=== PATIENT | male | born 1930 | race Caucasian/White ===

== ENCOUNTER → 2017-09-08 16:24 | Outpatient (CLI) | payer MEDICARE ==
[~2017-09-08 16:24] MED LIST: COLACE100 MG PO; FLOMAX0.4 MG PO; LIPITOR10 MG PO; NORVASC5 MG PO; ZESTRIL40 MG PO
[2017-10-17 13:26] VITALS: BMI 21.8
== END | disposition home or self-care (01) ==
LOC: D.RAD 16:24
DX: R19.06 Epigastric swelling, mass or lump (principal)

== ENCOUNTER 2017-10-12 12:35 | Inpatient (IN) | payer MEDICARE ==
[~2017-10-12] VITALS: Ht 180.3 cm; Wt 71.2 kg
[2017-10-12 13:35] LABS: BASOPHILS 0.1 % (0-2); EOSINOPHILS 1.2 % (0-7); HEMATOCRIT 31.2 % (42.0-54.0); HEMOGLOBIN 10.6 g/dL (13.5-17.5); IMMATURE GRANULOCYTES 0.4 % (0-5); MCH 32.4 pg (26.0-34.0); MCV 95.4 fL (80.0-100.0); MEAN PLATELET VOLUME 8.8 fL (7.4-10.4); MONOCYTES 5.5 % (2-11); NEUTROPHILS 86.8 % (40-80); RBC 3.27 10x6/uL (4.20-6.10); RDW 15.9 % (11.5-14.5); WBC 11.3 10x3/uL (4.8-10.8)
[2017-10-12 13:36] LABS: PLATELET COUNT 223 10x3/uL (130-400)
[2017-10-12 14:04] LABS: ALBUMIN 2.3 g/dL (3.4-5.0); ALKALINE PHOSPHATASE 128 U/L (46-116); ALT (SGPT) 77 U/L (10-68); BILIRUBIN - TOTAL 0.37 mg/dL (0.2-1.3); CALC OSMOLALITY 270 mosm/kg (275-300); CALCIUM 8.6 mg/dL (8.5-10.1); CHLORIDE - SERUM 102 mmol/L (98-107); CREATININE - SERUM 0.9 mg/dL (0.6-1.3); GLUCOSE 80 mg/dL (74-106); POTASSIUM - SERUM 4.5 mmol/L (3.5-5.1); PROTEIN - SERUM 5.7 g/dL (6.4-8.2); SODIUM 132 mmol/L (136-145); UREA NITROGEN 32 mg/dL (7-18); eGFR NON AFRICAN AMERICAN 85 mL/min (90-120)
[2017-10-12 14:44] LABS: INR 1.32 (0.85-1.17); PROTIME 15.9 SECONDS (11.6-15.0)
[2017-10-12 14:46] LABS: D-DIMER-QUANTITATIVE 2.24 ug/mLFEU (0.20-0.54)
[2017-10-12 15:00] LABS: CKMB 22.4 U/L (0.0-3.6); CREATINE KINASE 129 UL (21-232); PRO BNP 435 pg/mL (0-450)
[2017-10-12 15:04] LABS: TROPONIN-I < 0.017 ng/mL (0.000-0.060)
[2017-10-13] MEDS ORDERED: NORVASC5 MG PO (00:25)
[2017-10-13] MEDS ORDERED: FLOMAX0.4 MG PO (00:25)
[2017-10-13] MEDS ORDERED: ZESTRIL40 MG PO (00:25)
[2017-10-13] MEDS ORDERED: LIPITOR10 MG PO (00:26)
[2017-10-13] MEDS ORDERED: COLACE100 MG PO (00:26)
[2017-10-13 02:14] VITALS: BP 90/46; BMI 21.9
[2017-10-13 04:00] VITALS: BP 115/52
[2017-10-13 04:39] LABS: BASOPHILS 0.1 % (0-2); EOSINOPHILS 1.4 % (0-7); HEMATOCRIT 31.9 % (42.0-54.0); HEMOGLOBIN 10.6 g/dL (13.5-17.5); IMMATURE GRANULOCYTES 0.3 % (0-5); LYMPHOCYTES 7.3 % (15-50); MCH 31.6 pg (26.0-34.0); MCHC 33.2 g/dL (31.0-37.0); MCV 95.2 fL (80.0-100.0); MONOCYTES 4.7 % (2-11); NEUTROPHILS 86.2 % (40-80); PLATELET COUNT 234 10x3/uL (130-400); RBC 3.35 10x6/uL (4.20-6.10)
[2017-10-13 04:56] LABS: CALC OSMOLALITY 277 mosm/kg (275-300); CALCIUM 8.5 mg/dL (8.5-10.1); CHLORIDE - SERUM 106 mmol/L (98-107); POTASSIUM - SERUM 4.7 mmol/L (3.5-5.1); SODIUM 137 mmol/L (136-145); UREA NITROGEN 28 mg/dL (7-18); eGFR NON AFRICAN AMERICAN 75 mL/min (90-120)
[2017-10-13 05:09] LABS: GLUCOSE 61 mg/dL (74-106)
[2017-10-13 08:07] VITALS: BP 113/52
[2017-10-13 11:46] VITALS: BP 110/49
[2017-10-13 14:27] VITALS: Ht 180.3 cm; Wt 71.2 kg
[2017-10-13 16:04] VITALS: BP 117/52
[2017-10-13 22:00] VITALS: BP 110/56
[2017-10-14 04:00] VITALS: BP 102/66
[2017-10-14 05:26] LABS: BASOPHILS 0.1 % (0-2); EOSINOPHILS 2.8 % (0-7); HEMATOCRIT 33.3 % (42.0-54.0); HEMOGLOBIN 11.1 g/dL (13.5-17.5); IMMATURE GRANULOCYTES 0.6 % (0-5); LYMPHOCYTES 10.8 % (15-50); MCHC 33.3 g/dL (31.0-37.0); MEAN PLATELET VOLUME 9.3 fL (7.4-10.4); MONOCYTES 7.2 % (2-11); NEUTROPHILS 78.5 % (40-80); PLATELET COUNT 230 10x3/uL (130-400); RBC 3.47 10x6/uL (4.20-6.10); RDW 16.2 % (11.5-14.5); WBC 7.2 10x3/uL (4.8-10.8)
[2017-10-14 05:59] LABS: CALC OSMOLALITY 282 mosm/kg (275-300); CALCIUM 8.8 mg/dL (8.5-10.1); CARBON DIOXIDE 23.4 mmol/L (21.0-32.0); CHLORIDE - SERUM 109 mmol/L (98-107); CREATININE - SERUM 0.9 mg/dL (0.6-1.3); GLUCOSE 76 mg/dL (74-106); POTASSIUM - SERUM 4.5 mmol/L (3.5-5.1); SODIUM 140 mmol/L (136-145); UREA NITROGEN 26 mg/dL (7-18); eGFR NON AFRICAN AMERICAN 85 mL/min (90-120)
[2017-10-14 10:57] VITALS: BP 134/70
[2017-10-14 12:45] VITALS: BP 138/76
[2017-10-14 16:45] VITALS: BP 101/68
[2017-10-14 20:00] VITALS: BP 137/74
[2017-10-15] VITALS: BP 140/77
[2017-10-15 05:00] VITALS: BP 137/67
[2017-10-15 07:45] LABS: HEMATOCRIT 32.7 % (42.0-54.0); HEMOGLOBIN 10.6 g/dL (13.5-17.5); MCH 30.9 pg (26.0-34.0); MCHC 32.4 g/dL (31.0-37.0); MCV 95.3 fL (80.0-100.0); MEAN PLATELET VOLUME 8.6 fL (7.4-10.4); PLATELET COUNT 208 10x3/uL (130-400); RBC 3.43 10x6/uL (4.20-6.10); RDW 16.8 % (11.5-14.5)
[2017-10-15 07:54] LABS: WBC 5.2 10x3/uL (4.8-10.8)
[2017-10-15 07:55] LABS: CALC OSMOLALITY 288 mosm/kg (275-300); CALCIUM 8.8 mg/dL (8.5-10.1); CARBON DIOXIDE 24.9 mmol/L (21.0-32.0); CHLORIDE - SERUM 112 mmol/L (98-107); CREATININE - SERUM 0.9 mg/dL (0.6-1.3); GLUCOSE 81 mg/dL (74-106); POTASSIUM - SERUM 4.7 mmol/L (3.5-5.1); SODIUM 144 mmol/L (136-145); UREA NITROGEN 22 mg/dL (7-18); eGFR NON AFRICAN AMERICAN 85 mL/min (90-120)
[2017-10-15 09:03] VITALS: BP 106/73
[2017-10-15 13:53] VITALS: BP 102/70
[2017-10-15 16:20] VITALS: BP 139/77
[2017-10-15 22:28] VITALS: BP 146/76
[2017-10-16 02:16] VITALS: BP 120/66
[2017-10-16 04:00] VITALS: BP 112/53
[2017-10-16 06:02] LABS: BASOPHILS 0.3 % (0-2); HEMOGLOBIN 10.1 g/dL (13.5-17.5); IMMATURE GRANULOCYTES 1.5 % (0-5); LYMPHOCYTES 21.2 % (15-50); MCH 31.4 pg (26.0-34.0); MCHC 32.6 g/dL (31.0-37.0); MCV 96.3 fL (80.0-100.0); MEAN PLATELET VOLUME 9.3 fL (7.4-10.4); PLATELET COUNT 183 10x3/uL (130-400); RBC 3.22 10x6/uL (4.20-6.10); RDW 16.1 % (11.5-14.5)
[2017-10-16 06:06] LABS: WBC 3.4 10x3/uL (4.8-10.8)
[2017-10-16 06:17] LABS: CALC OSMOLALITY 289 mosm/kg (275-300); CALCIUM 8.7 mg/dL (8.5-10.1); CHLORIDE - SERUM 113 mmol/L (98-107); CREATININE - SERUM 0.9 mg/dL (0.6-1.3); POTASSIUM - SERUM 4.5 mmol/L (3.5-5.1); SODIUM 145 mmol/L (136-145); UREA NITROGEN 21 mg/dL (7-18); eGFR NON AFRICAN AMERICAN 85 mL/min (90-120)
[2017-10-16 06:27] LABS: GLUCOSE 59 mg/dL (74-106)
[2017-10-16 08:17] VITALS: BP 128/59
[2017-10-16 11:47] VITALS: BP 124/73
[2017-10-16 21:43] VITALS: BP 164/81
[2017-10-17 18:07] LABS: ACID FAST SMEAR Negative (()); AFB SPECIMEN PROCESSING Concentration (())
[2017-10-19 11:12] LABS: FUNGUS STAIN Final report (())
[2017-10-22 15:17] LABS: FUNGUS CULTURE RESULT 1 Candida albicans (()); FUNGUS STAIN RESULT 1 Hyphae observed (())
[2017-10-26 07:10] LABS: VIRAL - RESULT No virus isolated. (())
[2017-11-13 17:12] LABS: FUNGUS MYCOLOGY CULTURE Final report (())
== END 2017-10-16 22:20 | disposition hospice, inpatient (51) | DRG 178 ==
LOC: D.ER 12:35 → D.MS 21:29
PROVIDERS: Family Medicine; Internal Medicine Pulmonary Disease
PROC: 0B9B8ZZ Drainage of Left Lower Lobe Bronchus, Via Natural or Artificial Opening Endoscopic (ICD-10-PCS; 2017-10-16)
PROC: 0B988ZZ Drainage of Left Upper Lobe Bronchus, Via Natural or Artificial Opening Endoscopic (ICD-10-PCS; 2017-10-16)
PROC: 5A09357 Assistance with Respiratory Ventilation, Less than 24 Consecutive Hours, Continuous Positive Airway Pressure (ICD-10-PCS; principal; 2017-10-16 11:00)
DX: J15.212 Pneumonia due to Methicillin resistant Staphylococcus aureus (principal); E87.1 Hypo-osmolality and hyponatremia; J90 Pleural effusion, not elsewhere classified; T17.590A Other foreign object in bronchus causing asphyxiation, initial encounter; I95.9 Hypotension, unspecified; R00.1 Bradycardia, unspecified; T68.XXXA Hypothermia, initial encounter; Z74.09 Other reduced mobility; D64.9 Anemia, unspecified; Z66 Do not resuscitate; E86.0 Dehydration; N40.0 Benign prostatic hyperplasia without lower urinary tract symptoms; E78.5 Hyperlipidemia, unspecified; R41.89 Other symptoms and signs involving cognitive functions and awareness; R06.03 Acute respiratory distress; R13.10 Dysphagia, unspecified; E03.9 Hypothyroidism, unspecified

== ENCOUNTER 2017-10-16 22:21 | Inpatient (IN) | payer OTHER ==
[~2017-10-16] VITALS: Ht 180.3 cm; Wt 70.9 kg
[2017-10-17 00:09] VITALS: BP 174/78; BMI 21.8
[2017-10-17 08:34] VITALS: BP 98/53
[2017-10-17 13:26] VITALS: Ht 180.3 cm; Wt 70.9 kg
[2017-10-17 22:01] VITALS: BP 114/61
[2017-10-18 09:30] VITALS: BP 81/39
== END 2017-10-18 15:25 | DRG 951 ==
LOC: D.MS 22:21
DX: Z51.5 Encounter for palliative care (principal)